=== PATIENT | male | born 1975 | race Caucasian/White ===

== ENCOUNTER 2018-06-13 02:11 | Inpatient (IN) | payer MEDICAID, OTHER ==
[~2018-06-13] VITALS: Ht 177.8 cm; Wt 95.7 kg
[2018-06-13 03:02] LABS: BASOPHILS % (AUTO) 0.2 % (0.0-2.0); EOSINOPHILS % (AUTO) 0 % (1.0-6.0); HEMATOCRIT 46.1 % (41-53); HEMOGLOBIN 15.8 g/dL (13.5-17.5); LYMPHOCYTES # (AUTO) 1.6 K/uL (1.0-4.8); LYMPHOCYTES % (AUTO) 7.6 % (22.0-44.0); MEAN CORPUSCULAR HEMOGLOBIN 29.1 pg (26.0-34.0); MEAN CORPUSCULAR HGB CONC 34.2 G/dL (31.0-37.0); MEAN CORPUSCULAR VOLUME 85 fL (80-100); MONOCYTES % (AUTO) 4.6 % (2.0-9.0); NEUTROPHILS # (AUTO) 18.8 K/uL (1.8-7.7); PLATELET COUNT (AUTO) 419 K/uL (150-450); RED BLOOD CELL COUNT(AUTO) 5.41 MIL/uL (4.50-5.90); RED CELL DISTRIBUTION WIDTH 14.2 % (11.5-14.5)
[2018-06-13 03:05] LABS: NEUTROPHILS % (AUTO) 87.6 % (40.0-70.0)
[2018-06-13 03:12] LABS: ALBUMIN 4.4 g/dL (3.4-5.0); BILIRUBIN,TOTAL 0.4 mg/dL (0.1-1.0); CALCIUM, TOTAL 9.2 mg/dL (8.8-10.5); CREATININE 1.4 mg/dL (0.60-1.30)
[2018-06-13] MEDS ORDERED: LORazepam 2 MG/ML VIAL IM ONE (03:15)
[2018-06-13] MEDS ORDERED: DiphenhydrAMINE HCL 50 MG/ML VIAL IM ONE (03:15)
[2018-06-13] MEDS ORDERED: HALOPERIDOL LACTATE 5 MG/ML VIAL IM ONE (03:15)
[2018-06-13 03:37] LABS: AMPHET/METH SCREEN,URINE POSITIVE (NEGATIVE); BARBITURATE SCREEN, URINE NEGATIVE (NEGATIVE); BENZODIAZEPINES SCREEN,URINE NEGATIVE (NEGATIVE); CANNABINOID SCREEN,URINE NEGATIVE (NEGATIVE); COCAINE SCREEN,URINE NEGATIVE (NEGATIVE); METHADONE SCREEN, URINE NEGATIVE (NEGATIVE); OPIATE SCREEN,URINE NEGATIVE (NEGATIVE)
[2018-06-13 03:39] LABS: PHENCYCLIDINE SCREEN,URINE NEGATIVE (NEGATIVE)
[2018-06-13] MEDS ORDERED: ZOLPIDEM TARTRATE 10 MG TABLET PO PRN (04:00)
[2018-06-13 07:36] LABS: CHOL/HDL RATIO 2.3 (4.2-7.3); FREE T4 (FREE THYROXINE) 0.87 ng/dL (0.76-1.46); THYROID STIMULATING HORMONE 2.71 uIU/mL (0.36-3.74)
[2018-06-13 07:51] LABS: HEMOGLOBIN A1C 5.7 % (4.5-6.2)
[2018-06-13 08:54] VITALS: BP 143/87
[2018-06-13] MEDS: LORazepam 2 MG TABLET PO PRN ×2 (09:13→13:24)
[2018-06-13] MEDS: HALOPERIDOL 5 MG TABLET PO PRN ×2 (09:13→13:24)
[2018-06-13 16:52] VITALS: BP 143/86
[2018-06-13] MEDS ORDERED: CloNIDine HCL 0.1 MG TABLET PO PRN (18:15)
[2018-06-13] MEDS ORDERED: BACITRACIN 28.4 GM OINTMENT TP PRN (18:15)
[2018-06-13] MEDS ORDERED: ONDANSETRON HCL 4 MG TABLET PO PRN (18:15)
[2018-06-13] MEDS ORDERED: SUMAtriptan SUCCINATE 25 MG TABLET PO PRN (18:15)
[2018-06-13] MEDS ORDERED: ALBUTEROL SULFATE HFA 90 MCG/PUFF 8 GM INHALER IH PRN (18:15)
[2018-06-13] MEDS ORDERED: BENZOCAINE/MENTHOL LOZENGE MM PRN (18:15)
[2018-06-13] MEDS ORDERED: POTASSIUM CHLORIDE 20 MEQ ER TABLET PO ONE (18:15)
[2018-06-13] MEDS ORDERED: LOPERAMIDE HCL 2 MG CAPSULE PO PRN (18:15)
[2018-06-13] MEDS ORDERED: PETROLATUM,WHITE 71 GM JELLY TP PRN (18:15)
[2018-06-13] MEDS ORDERED: MAGNESIUM HYDROXIDE SUSPENSION 30 ML UDCUP PO PRN (18:15)
[2018-06-13] MEDS ORDERED: MAG HYDROX/AL HYDROX/SIMETH ES 30 ML SUSPENSION UDCUP PO PRN (18:15)
[2018-06-13] MEDS: RisperiDONE 2 MG TABLET PO SCH (21:00)
[2018-06-14 08:02] VITALS: BP 152/89
[2018-06-14] MEDS: LORazepam 2 MG TABLET PO PRN (08:50)
[2018-06-14] MEDS: ATENOLOL 25 MG TABLET PO SCH (08:50)
[2018-06-14] MEDS: RisperiDONE 2 MG TABLET PO SCH (08:51)
[2018-06-14] MEDS ORDERED: SERTRALINE HCL 50 MG TABLET PO SCH (09:00)
[2018-06-14] MEDS: BuPROPion HCL XL 150 MG ER TABLET PO SCH (14:40)
[2018-06-14] MEDS: ARIPiprazole 10 MG TABLET PO SCH (14:40)
[2018-06-14 16:20] VITALS: BP 149/93
[2018-06-15 07:01] LABS: MEAN CORPUSCULAR HEMOGLOBIN 29.6 pg (26.0-34.0); MEAN CORPUSCULAR HGB CONC 34.9 G/dL (31.0-37.0); MEAN CORPUSCULAR VOLUME 85 fL (80-100); PLATELET COUNT (AUTO) 339 K/uL (150-450); RED BLOOD CELL COUNT(AUTO) 5.08 MIL/uL (4.50-5.90); RED CELL DISTRIBUTION WIDTH 14.2 % (11.5-14.5)
[2018-06-15 07:24] LABS: ANION GAP 6 mmol/L (8-16); CALCIUM, TOTAL 8.4 mg/dL (8.8-10.5); CARBON DIOXIDE 28 mmol/L (22-29); CHLORIDE 100 mmol/L (98-107); GLOMERULAR FILTR. RATE CALC > 60 mL/min (>60); GLUCOSE,RANDOM 140 mg/dL (70-110); PHOSPHORUS 3.1 mg/dL (2.5-4.9); POTASSIUM 3.7 mmol/L (3.5-5.1); SODIUM SERUM 134 mmol/L (136-145); UREA NITROGEN, BLOOD 13 mg/dL (7-18)
[2018-06-15 07:33] LABS: BAND NEUTROPHILS % (MANUAL) 1 % (0-5); EOSINOPHILS % (MANUAL) 1 % (1-6); LYMPHOCYTES % (MANUAL) 21 % (22-44); MONOCYTES % (MANUAL) 6 % (2-9); SEGMENTED NEUTROPHILS % 71 % (40-70)
[2018-06-15] MEDS: BuPROPion HCL XL 150 MG ER TABLET PO SCH (08:09)
[2018-06-15] MEDS: ARIPiprazole 10 MG TABLET PO SCH (08:09)
[2018-06-15] MEDS: ATENOLOL 25 MG TABLET PO SCH (08:09)
[2018-06-15 18:01] VITALS: BP 134/96
[2018-06-15 21:36] VITALS: BP 146/90
[2018-06-15] MEDS: ACETAMINOPHEN 325 MG TABLET PO PRN (21:40)
[2018-06-16 02:10] VITALS: BP 153/103
[2018-06-16] MEDS: LORazepam 2 MG TABLET PO PRN (02:11)
[2018-06-16] MEDS: ACETAMINOPHEN 325 MG TABLET PO PRN (02:13)
[2018-06-16 08:30] VITALS: BP 159/95
[2018-06-16] MEDS ORDERED: AMOXICILLIN TRIHYDRATE 250 MG CAPSULE PO SCH (09:00)
[2018-06-16] MEDS ORDERED: LISINOPRIL 10 MG TABLET PO SCH (09:00)
[2018-06-16] MEDS: ARIPiprazole 10 MG TABLET PO SCH (09:08)
[2018-06-16] MEDS: BuPROPion HCL XL 150 MG ER TABLET PO SCH (09:08)
[2018-06-16] MEDS: ATENOLOL 25 MG TABLET PO SCH (09:08)
[2018-06-16] MEDS: MAGNESIUM OXIDE 400 MG TABLET PO SCH ×2 (09:09→12:28)
[2018-06-16] MEDS ORDERED: BUPR-93 PO (12:14)
[2018-06-16] MEDS ORDERED: ARIP10TA8 PO (12:14)
[2018-06-16] MEDS ORDERED: LISI-661 PO (12:21)
[2018-06-16] MEDS ORDERED: ATEN25TA PO (12:21)
[2018-06-16] MEDS ORDERED: MAGOX PO (12:21)
== END 2018-06-16 14:40 | disposition home or self-care (01) | DRG 750 ==
LOC: EMS 02:11 → 3EC 05:22
PROVIDERS: ADMIT Psychiatry & Neurology Child & Adolescent Psychiatry; ATTEND Psychiatry & Neurology Child & Adolescent Psychiatry
DX: F25.1 Schizoaffective disorder, depressive type (principal); N17.9 Acute kidney failure, unspecified; R45.851 Suicidal ideations; D17.9 Benign lipomatous neoplasm, unspecified; M54.5 Low back pain; I10 Essential (primary) hypertension; G43.909 Migraine, unspecified, not intractable, without status migrainosus; D72.829 Elevated white blood cell count, unspecified; F41.9 Anxiety disorder, unspecified; G47.00 Insomnia, unspecified; E87.6 Hypokalemia; J45.909 Unspecified asthma, uncomplicated; F15.10 Other stimulant abuse, uncomplicated; M06.9 Rheumatoid arthritis, unspecified; Z72.89 Other problems related to lifestyle; Z88.8 Allergy status to other drugs, medicaments and biological substances; Z91.018 Allergy to other foods; Z28.21 Immunization not carried out because of patient refusal; Z81.8 Family history of other mental and behavioral disorders; Z90.49 Acquired absence of other specified parts of digestive tract; Z91.19 Patient's noncompliance with other medical treatment and regimen
CPT/HCPCS: 70360; 83036; 83735; 84100; 84439; 84443; 85007; 96372; G0480; J1200; J1630; J2060

== ENCOUNTER 2019-01-16 22:56 | Emergency (ER) | payer MEDICAID ==
[~2019-01-16] VITALS: Ht 182.9 cm; Wt 90.9 kg
[~2019-01-16 22:56] MED LIST: ARIP10TA8 PO; ATEN25TA PO; BUPR-93 PO; LISI-661 PO; MAGOX PO
[2019-01-16 23:10] VITALS: BP 136/79
== END 2019-01-17 02:10 | disposition left against medical advice (07) ==
LOC: EMS 22:57
DX: N50.89 Other specified disorders of the male genital organs (principal); Z53.21 Procedure and treatment not carried out due to patient leaving prior to being seen by health care provider